=== PATIENT | male | born 1975 | race Caucasian/White ===

== ENCOUNTER 2021-02-09 16:08 | Emergency (ER) | payer OTHER, SELFPAY ==
[2021-02-09 16:09] VITALS: BP 124/78; PULSE 72; RESP 16; TEMP 36.2; O2SAT 94; BMI 18.8
--- NOTE | 2021-02-09 16:34 | CT_ITS ---
INDICATION: mandible/dental injury EXAMINATION: CT Maxillofacial W/O Contrast Injection TECHNIQUE: Helically acquired images were obtained of the facial bones. A radiation dose optimization technique was used for this scan. IV Contrast dosage and agent: None. COMPARISON: None. FINDINGS: SOFT TISSUES: No focal subcutaneous swelling. No discrete fluid collections. VISUALIZED PARANASAL SINUSES: Clear. VISUALIZED MASTOID AIR CELLS: Clear. FACIAL BONES, MANDIBLE AND TMJs: Questionable nondisplaced fracture of the right mandibular body near the right mandibular canine. No lytic or blastic abnormality. VISUALIZED DENTITION: Periapical lucencies of the right mandibular canine and right maxillary premolar. ORBITAL CONTENTS: Both globes, extraocular muscles and retrobulbar fat appear unremarkable. CT/Sinus/Facial Bone IMPRESSION: Questionable nondisplaced fracture versus vascular channel of the right mandibular body near the right mandibular canine. Dental abscesses of the right mandibular canine and right maxillary premolar. Electronically Signed: Jose Luis Pisano MD at 17:16 EDT Tel , Service support ,
--- NOTE | 2021-02-09 16:35 | EX.ED.GENINJ ---
HPI History of Present Illness Chief Complaint: Trauma Informant: patient Onset/Context/Timing Onset: Today Location: See below Current Severity: Mild Maximum Severity: Moderate Worsened by: movement of affected teeth Relieved by: nothing Associated Symptoms Associated Symptoms: Positive for Loss of function; Negative for Parasthesias, Weakness, Inability to ambulate and Loss of consciousness Narrative Narrative: Patient is Kris and he was working on a machine, a belt/jenna accidentally got a hold of his horton and pulled it into it, eventually causing injury to his anterior mandibular teeth in his mouth. He also has some soreness where his horton was pulled but that is minor, and some mild-moderate pain on the left side of his mandible. He has no trouble talking or opening his mouth. Denies any other injury. [facility] Medical History Anxiety Smoker Spinal meningioma Home Medications amoxicillin 500 mg PO TID #30 tab 02/09/21 [Rx Last Taken Unknown] hydrocodone-acetaminophen 1 tab PO Q4H PRN PRN 2 Days #12 tablet 02/09/21 [Rx Last Taken Unknown] Allergy/AdvReac Type Severity Reaction Status Date / Time No Known Allergies Allergy Verified 02/09/21 16:11 Social History Smoking Status: Current some day smoker tobacco type: pipe ROS ROS ED Constitutional Constitutional ED: Denies chills or fever(s) Eyes Eyes: Denies change in vision or diplopia ENT ENT ED: Reports as per HPI; Denies rhinorrhea or sore throat Cardiovascular Cardiovascular: Denies chest pain or palpitations Respiratory/Chest Respiratory/Chest: Denies cough or dyspnea Gastrointestinal Gastrointestinal: Denies abdominal pain, diarrhea, nausea or vomiting Genitourinary Genitourinary ED: Denies dysuria or hematuria Musculoskeletal Musculoskeletal: Denies back pain or neck pain Integumentary Denies abscess or rash Neurologic Neurologic: Denies headache(s), paresthesias or weakness Psychiatric Psychiatric: Denies anxiety or suicidal thoughts EXAM Physical Exam Const Vital Signs: 02/09/21 16:09 Temperature 97.2 F L Temperature Source Temporal Pulse Rate 72 Respiratory Rate 16 Blood Pressure 124/78 H Blood Pressure Mean 93 Pulse Ox 94 Oxygen Delivery Method Room Air Positive well nourished and well developed General Appearance ED: well developed and NAD HEENT Reports moist mucous membranes HEENT Narrative: Patient has evidence of recent minor bleeding from the right mandibular gingival area, at the rightward most incisors and canines, there appears to be a superficial gingival laceration through this area with no active bleeding and it is not open/gaping. The mandibular incisors are loosened but intact, the cuspid is in place in the gingiva but displaced anteriorly and feels stable. The patient states this abnormality is not normal for him and is new due to this injury. He has multiple other cavities including all of his molars, none of these areas are tender or appear to have abscesses. No malocclusion. Mild tenderness left mandibular body, no tenderness at TMJ bilaterally, no deformities and no asymmetry in the mandible/face. normocephalic Eyes PERRL and EOMs intact bilaterally Neck full ROM and supple Resp normal respiratory effort and clear to auscultation bilaterally Cardio regular rate, regular rhythm and no murmurs GI non-tender and non-distended Auscultation: normoactive bowel sounds Palpation: soft Back/Spine no CVA tenderness General Back: other FROM Extremity normal to inspection General Extremety ED: Negative for edema, pulses abnormal or tenderness General Extremity: Negative for edema or pulses abnormal Neuro oriented x3, CN's II-XII intact bilaterally and no sensory deficits noted Sensorium / Orientation: awake and alert Motor Exam: strength 5/5 throughout Skin no rashes or lesions noted and no wounds MDM MDM MDM Narrative Medical decision making narrative: CT was obtained, given the multiple areas of interest. As below, it is showing possible fracture in the area where the patient has a clinical injury, so I think this is truly a nondisplaced fracture. Luckily since it is nondisplaced, he is less likely to need oral surgery. I attempted to call the patient's dentist however their office was closed and there was no one available teaching music lessons. His teeth are loosened but in place. Patient was given something for pain, will place him on an antibiotic since it is technically an open nondisplaced fracture, and advised to follow-up with his dentist as soon as he is able. Radiography Diagnostic Testing: Radiology Impression Facial/Sinus 02/09/21 16:34 IMPRESSION: Questionable nondisplaced fracture versus vascular channel of the right mandibular body near the right mandibular canine. Dental abscesses of the right mandibular canine and right maxillary premolar. Electronically Signed: Jose Luis Pisano MD at 17:16 EDT Tel , Service support , Discharge Plan Triage Chief Complaint: Trauma ED Provider: Jose A Choudhary Dx/Rx/DC Orders Clinical Impression: Open fracture alveolar border, mandible, Dental injury Instructions: ED Jaw Fracture Prescriptions: New amoxicillin 500 mg tablet 500 mg PO TID Qty: 30 RF: 0 hydrocodone-acetaminophen [hydrocodone-acetaminophen] 1 TABLET tablet 1 tab PO Q4H PRN PRN (Reason: Pain) 2 Days Qty: 12 RF: 0 Primary Care Provider: Clark Hairston Referrals: Clark Hairston MD [Primary Care Provider] - Dentist,Your [STAFF PHYSICIAN] - As soon as possible Disposition Disposition: Home, Self Care
[2021-02-09] MEDS: HYDROcodone Bitartrate/Apap 5/325 Tablet PO (19:07)
[2021-02-09 19:10] VITALS: BP 120/73; PULSE 72; RESP 16; O2SAT 98
== END 2021-02-09 19:11 | disposition home or self-care (01) ==
PROVIDERS: Emergency Provider Emergency Medicine; PCP Family Medicine
DX: S02.671B Fracture of alveolus of right mandible, initial encounter for open fracture (principal); W31.89XA Contact with other specified machinery, initial encounter; Y93.9 Activity, unspecified; Y92.9 Unspecified place or not applicable; F17.290 Nicotine dependence, other tobacco product, uncomplicated
CPT/HCPCS: 70486; 99282